=== PATIENT | female | born 1995 | race Caucasian/White ===

== ENCOUNTER 2020-09-03 18:43 | Emergency (ER) | payer MEDICAID ==
[~2020-09-03] VITALS: Ht 162.6 cm; Wt 59.0 kg
[2020-09-03 18:45] VITALS: Ht 162.6 cm; Wt 59.0 kg
[2020-09-03 19:56] VITALS: BP 137/92
== END 2020-09-03 19:56 | disposition home or self-care (01) ==
LOC: ED 18:43
DX: A08.4 Viral intestinal infection, unspecified (principal); J45.909 Unspecified asthma, uncomplicated; Z88.1 Allergy status to other antibiotic agents